=== PATIENT | female | born 1990 | race Caucasian/White ===

== ENCOUNTER 2016-09-18 19:34 | Emergency (ER) | payer OTHER ==
--- NOTE | ~2016-09-18 | CR20 ---
[facility]. [facility] A Service of [facility] & [facility] RADIOLOGY TEXT RESULTS PATIENT: BECKA JO LOCATION: SED : [birth year] UNIT #: [id number] AGE: [address]: Elissa Garcia APRN SEX: F ORDER DR: [id number] [place] [id number] E MR#: [id number] Acc #: [id number] NAME: BECKA JO : 1990 SEX: F STUDY DATE/TIME: 09/18/2016 19:04 UNIT: SED ROOM: STUDY DESCRIPTION: CR Ankle Min 3 Views Lt Attending Physician: Elissa Garcia A.P.R.N. Ordering Physician: Elissa Garcia A.P.R.N. MEDICAL IMAGING REPORT This report is preliminary unless electronic signature is present. EXAM Left ankle, 3 views HISTORY Ankle pain, fell today FINDINGS 3 views of the ankle are submitted. Small, well-rounded ossicles are identified distal to the medial and lateral malleolus. There is mild soft tissue swelling around the ankle joint. No acute fractures are identified. No evidence of joint effusion. Bony elements are intact. CONCLUSION There are multiple well-rounded ossicles distal to the malleoli, all of which appear old. There is mild soft tissue swelling but no fractures identified. Dictated by... Jeremy Brown M.D. THIS IS AN ELECTRONICALLY VERIFIED REPORT Jeremy Brown M.D. at 09/22/2016 7:21 AM YAIR/monica TD: 09/18/2016 23:28 JOB #: [id number] MEDICAL IMAGING REPORT Page 1 of 1
[~2016-09-18 19:34] MED LIST: BIRTH CONTROL PILL PO; [UNRECOGNIZED DRUG - REMARK]
== END 2016-09-18 20:04 | disposition home or self-care (01) ==
LOC: SED 19:34
DX: S93.432A Sprain of tibiofibular ligament of left ankle, initial encounter (principal); S93.422A Sprain of deltoid ligament of left ankle, initial encounter; Z79.899 Other long term (current) drug therapy; X50.1XXA Overexertion from prolonged static or awkward postures, initial encounter; Y92.009 Unspecified place in unspecified non-institutional (private) residence as the place of occurrence of the external cause
CPT/HCPCS: 29540; 73610; 99283